=== PATIENT | male | born 1980 | race Two or more races ===

== ENCOUNTER 2021-04-12 04:12 | Day surgery (SDC) | payer BC ==
[2021-04-08 15:11] VITALS: BMI 23.5
[2021-04-12] MEDS ORDERED: PROPOFOL 20 ML ONE ×4 (15:41→16:22)
[2021-04-12] MEDS ORDERED: MIDAZOLAM HCL 2 MG/2 ML SINGLE DOSE VIAL ONE (15:45)
[2021-04-12] MEDS ORDERED: CLINDAMYCIN 600 MG PREMIX BAG IVPB ONE (16:05)
[2021-04-12] MEDS ORDERED: BUPIVACAINE HCL/PF 0.5% (5 MG/ML) 30 ML VIAL IJ ONE (16:07)
[2021-04-12] MEDS ORDERED: LIDOCAINE HCL 1%, 10 MG/ML (20ML VIAL) NR ONE (16:07)
[2021-04-12] MEDS ORDERED: LACTATED RINGERS SOLUTION 1,000 ML IV SCH (17:00)
[2021-04-12 18:55] VITALS: TEMP 97.2
[2021-04-12 18:56] VITALS: BP 120/65; PULSE 80
== END 2021-04-12 18:17 | disposition home or self-care (01) ==
LOC: JASU-SURG 04:12
PROVIDERS: ATTEND Urology
PROC: 0VTQ0ZZ Resection of Bilateral Vas Deferens, Open Approach (ICD-10-PCS; principal; 2021-04-12 13:00)
DX: Z30.2 Encounter for sterilization (principal)
CPT/HCPCS: 88302-TC; 94760